=== PATIENT | male | born 1965 | race Asian ===

== ENCOUNTER 2020-08-25 01:59 | Emergency (ER) | payer BC ==
[~2020-08-25] VITALS: Ht 175.3 cm; Wt 91.6 kg
[2020-08-25 02:24] VITALS: Ht 175.3 cm; Wt 91.6 kg
[2020-08-25 06:32] LABS: BASOPHIL % 1.1 % (0.2-1.5); PLATELET COUNT 184 x10^3mcL (152-348); RED CELL DISTRIBUTION WIDTH 13.4 % (12.1-16.2)
[2020-08-25 06:37] LABS: CALCIUM 8.2 mg/dL (8.5-10.1); CHLORIDE SERUM 107 mmol/L (98-107); CREATININE SERUM 1.2 mg/dL (0.7-1.3); GFR1 > 60 mL/min; GLUCOSE SERUM 96 mg/dL (74-106); POTASSIUM SERUM 3.6 mmol/L (3.5-5.1); SODIUM SERUM 143 mmol/L (136-145)
[2020-08-25 06:38] LABS: microscopic required? YES; urine erythrocyte 3+ (NEGATIVE)
[2020-08-25 06:41] LABS: ALBUMIN 3.9 g/dL (3.4-5.0); ALKALINE PHOSPHATASE 63 U/L (46-116); ALT/SGPT 28 U/L (16-63); AST/SGOT 15 U/L (15-37); BILIRUBIN TOTAL 0.6 mg/dL (0.20-1.00); TOTAL PROTEIN, SERUM 7.2 g/dL (6.4-8.2)
[2020-08-25 06:59] VITALS: BP 123/86
== END 2020-08-25 07:23 | disposition home or self-care (01) ==
LOC: ED 01:59
PROVIDERS: Emergency Medicine
DX: K80.20 Calculus of gallbladder without cholecystitis without obstruction (principal); I10 Essential (primary) hypertension; Z98.890 Other specified postprocedural states